=== PATIENT | male | born 1965 | race Caucasian/White ===

== ENCOUNTER → 2025-01-09 14:42 | Outpatient (CLI) | payer OTHER, SELFPAY | LOC: PHYS 14:43 | PROVIDERS: Family Provider Nurse Practitioner Family; PCP Nurse Practitioner Family; Referring Provider Nurse Practitioner Family; Visit Provider Nurse Practitioner Family | DX: R20.0 Anesthesia of skin (principal) | CPT/HCPCS: 95886; 95912 ==